=== PATIENT | female | born 1940 | race Caucasian/White ===

== ENCOUNTER 2019-12-04 16:40 | Inpatient (IN) | payer MEDICARE, OTHER, SELFPAY ==
[2019-12-04 16:41] VITALS: BP 143/78; PULSE 99; RESP 18; TEMP 36.8; O2SAT 97; BMI 34.7
--- NOTE | 2019-12-04 16:56 | CT_ITS ---
STUDY: CT ABDOMEN AND PELVIS WITH CONTRAST REASON FOR EXAM: Female, 79 years old patient has had five stools with bright red blood. Patient has elevated white cell count. RADIATION DOSAGE (If Supplied By Facility): CTDIvol = ( 19.78 ) mGy, DLP = ( 1165.43 ) mGycm TECHNIQUE: Transaxial images were obtained from the dome of the diaphragm to the symphysis pubis with oral contrast. 100 mL of Isovue-300 was administered. Sagittal and coronal images were reconstructed. Individualized dose optimization techniques were used for this CT. COMPARISON: None. FINDINGS: There is mild bilateral basilar dependent atelectasis. The visualized heart is mildly enlarged. There are coronary artery vascular calcifications. Normal liver. There is a large calcified gallstone. There is a benign calcified granuloma of the spleen. There is diffuse atrophy of the pancreas. Normal bilateral adrenal glands. Normal right kidney. Normal left kidney. Normal visualized stomach. There is no evidence for dilated bowel, ascites or pneumoperitoneum. Small bowel has a grossly normal appearance. There is a abnormal thickening of the escobar of the descending colon suggesting a diffuse probably acute infectious or inflammatory colitis. There is also abnormal thickening of the escobar of the sigmoid colon. There is also acute inflammation visualized within the fat adjacent to the abnormal colon. There are scattered colonic diverticula. There is gas-filled transverse colon. The ascending colon has a grossly normal appearance. There is non-visualization of the appendix. There is diffuse atherosclerotic calcification of the abdominal aorta with elongation and tortuosity, but without a demonstrated aneurysm. There is venous distention of the inferior vena cava (IVC). Normal retroperitoneum. Normal urinary bladder. There is absence of the uterus consistent with a prior hysterectomy. Normal abdominal wall. There are diffuse degenerative changes of the visualized spine. Bones appear osteopenic. There are degenerative changes of both hips. CT/Abdomen/Pelvis WITH Contrast IMPRESSION: 1. CT findings suggest sequela of acute infectious or inflammatory colitis involving the descending and sigmoid colon. 2. Cholelithiasis. Electronically Signed: Kat Jacobo MD at 19:53 EDT , Service support ,
--- NOTE | 2019-12-04 16:57 | ED.DCSUM_ITS ---
History of Present Illness Chief Complaint: GI Bleed Informant: Patient Onset: Yesterday Current Severity: Mild Maximum Severity: Mild Narrative: Patient present secondary to GI bleed. She reports having maroon blood rectally last evening and today. She has intermittent abdominal cramping. She also reports vomiting last night with blood. She does note that she did eat blueberry pancakes for dinner. She had not felt ill prior to getting sick last evening. Patient does have blood work with her from a prior hospitalization in 2010 for GI bleed. At that time it appears she was treated for a gastric ulcer and GI bleed with Prilosec. She does not remember if she had an EGD. She thinks she likely had a colonoscopy approximately 7 years ago. Past Medical History - Allergies and Home Meds Allergies/Adverse Reactions: Allergies No Known Allergies Allergy (Verified 12/04/19 16:44) Past Medical History: - - Prior GI bleed 9 years ago Surgical History: hysterectomy Lives: Spouse/ Significant Other Smoking Status: Never smoker Review of Systems General: Denies: Chills, Fever Eyes: Denies: Visual changes - bilaterally ENT: Denies: Bilateral ear pain Cardiovascular: Denies: Chest pain Respiratory: Denies: Dyspnea, Cough Gastrointestinal: Reports: Abdominal pain, Nausea, Vomiting, Melena Musculoskeletal: Denies: Swelling, Extremity Pain Skin: Denies: Rash, Wounds Neurological: Denies: Headache Hematologic: Denies: Easy bruising, Easy bleeding Allergy: Denies: Uticaria Physical Exam Vital Signs/Narrative: Vital Signs Temp Pulse Resp BP Pulse Ox 12/04/19 16:41 98.2 F 99 18 143/78 H 97 Inital Vital Signs reviewed: Yes General: Well nourished, Well developed Head: Normocephalic ENT: Moist mucous membranes Neck: Supple Cardiovascular: Regular rate, Regular rhythm Respiratory: No distress, CTA bilaterally Abdomen: Soft, Nontender, Normal bowel sounds Extremities: Nontender Skin: Normal color Neurological: Alert, Oriented x3 Psychological: Normal affect Diagnostic/Tx/Re-eval Impressions Abdomen/Pelvis CT 12/04/19 16:56 IMPRESSION: 1. CT findings suggest sequela of acute infectious or inflammatory colitis involving the descending and sigmoid colon. 2. Cholelithiasis. Electronically Signed: Kat Jacobo MD at 19:53 EDT , Service support , 12/04/19 16:56 Abdomen/Pelvis WITH Contrast [CT] Stat 12/04/19 17:41 Stool Stool Occult Blood (SABRINA) - Final Occult Blood Positive Laboratory Results 12/04/19 12/04/19 12/04/19 17:15 17:15 17:15 WBC 17.9 H RBC 4.72 Hgb 13.8 Hct 41.7 MCV 88.3 MCH 29.2 MCHC 33.1 RDW Std Deviation 38.8 RDW Coeff of Agus 12.1 Plt Count 329 MPV 10.8 Immature Gran % (Auto) 0.400 Neut % (Auto) 78.6 H Lymph % (Auto) 15.3 L [place] % (Auto) 5.3 Eos % (Auto) 0.2 Baso % (Auto) 0.2 Absolute Neuts (auto) 14.0 H Absolute Lymphs (auto) 2.74 Nucleated RBC % 0 PT 13.4 INR 1.1 APTT 24.2 Sodium 137 Potassium 3.5 Chloride 103 Carbon Dioxide 26.0 Anion Gap 8 BUN 14 Creatinine 0.79 Estim Creat Clear Calc 38.35 Est GFR (MDRD) Af Amer 91 Est GFR (MDRD) Non-Af 75 BUN/Creatinine Ratio 17.8 Glucose 282 H Hemoglobin A1c Calcium 9.1 12/04/19 17:15 WBC RBC Hgb Hct MCV MCH MCHC RDW Std Deviation RDW Coeff of Agus Plt Count MPV Immature Gran % (Auto) Neut % (Auto) Lymph % (Auto) [place] % (Auto) Eos % (Auto) Baso % (Auto) Absolute Neuts (auto) Absolute Lymphs (auto) Nucleated RBC % PT INR APTT Sodium Potassium Chloride Carbon Dioxide Anion Gap BUN Creatinine Estim Creat Clear Calc Est GFR (MDRD) Af Amer Est GFR (MDRD) Non-Af BUN/Creatinine Ratio Glucose Hemoglobin A1c 11.2 H Calcium - Medical Decision Making Patient was given IV fluids and Zofran. She was able to tolerate the p.o. contrast without difficulty. She has not needed anything for abdominal pain. Test results are discussed with patient and at bedside. I spoke with Dr. Ramirez, on-call for surgery. He asked that the patient be started on Cipro and Flagyl. She should be admitted for monitoring of her H&H and repeat exams. He will determine whether she will need to be scoped tomorrow or the following day. In light of the fact that the patient has new onset diabetes he would prefer medicine to admit and he will see her in consult. I will speak with the hospitalist. ED Disposition - Plan for ED Patient: Disposition: Acute Care Hospital [facility] Diagnosis: Colitis, GI bleed
[2019-12-04] MEDS: Ondansetron 4 MG/2 ML Vial IV (17:16)
[2019-12-04] MEDS: 0.9% Normal Saline 1,000 ML 150 ML IV (17:16)
[2019-12-04 17:27] LABS: Absolute Lymphocyte Count 2.74 X10^3/uL (0.83-4.51); Basophil# 0.03 X10^3/uL; Basophil% 0.2 % (0-1); Eosinophil# 0.03 X10^3/uL; Eosinophils% 0.2 % (0-5); Hematocrit 41.7 % (37-47); Hemoglobin 13.8 g/dL (12.0-15.0); Lymphocyte # 2.74 X10^3/ul (4.0); Lymphocyte % 15.3 % (19-41); Mean Corp Hgb Conc 33.1 g/dL (32-36); Mean Corpuscular Hgb 29.2 pg (27.0-32.0); Mean Corpuscular Volume 88.3 fL (81-99); Mean Platelet Vol. 10.8 fl (6.2-12.0); Monocyte# 0.95 X10^3/uL; Monocyte% 5.3 % (0-10); NRBC Flagged by Analyzer 0 % (0-5); Neutrophil # 14.04 X10^3/uL (2.7-7.7); Neutrophil % 78.6 % (47-70); Platelet Count 329 K/mm3 (150-450); RBC Distribution Width CV 12.1 % (11.6-14.6); RBC Distribution Width SD 38.8 fl (35.1-43.9); Red Blood Count 4.72 M/mm3 (4.2-5.4); White Blood Count 17.9 K/mm3 (4.4-11.0)
[2019-12-04 17:42] LABS: International Normalized Ratio 1.1; Prothrombin Time (Protime)PT. 13.4 SECONDS (11.7-14.9)
[2019-12-04 17:43] LABS: Partial Thromboplast Time 24.2 Seconds (24.1-36.2)
[2019-12-04 17:44] LABS: Anion Gap 8 (5-15); BUN 14 mg/dL (7-18); BUN/Creat Ratio 17.8 RATIO (10-20); Calcium,Total 9.1 mg/dL (8.5-10.1); Chloride 103 mmol/L (98-107); Creatinine, Serum 0.79 mg/dL (0.55-1.02); EST Glomerular Filtration Rate 75 mL/min (>60); Est Glom Filt Rate - Afr Amer 91 mL/min (>60); Estimated Creatinine Clearance 38.35 ml/min; Glucose 282 mg/dL (74-106); Potassium 3.5 mmol/L (3.5-5.1); Sodium Level 137 mmol/L (136-145)
[2019-12-04 18:37] LABS: Hemoglobin A1c 11.2 % (3.8-5.6)
--- NOTE | 2019-12-04 20:08 | HP.PCM_ITS ---
Problem List (1) Colitis Status: Acute (2) GI bleed Status: Acute (3) Diabetes Status: Acute History of Present Illness Date of Admission: 12/04/19 Chief Complaint: hematemesis and hematochezia The patient is a 79 year old F with a significant history of hypertension; and hyperlipidemia who presents to the emergency department with hematochezia and hematemesis. Her symptoms started a day before presentation after a blueberry pancakes dinner. Her symptoms first began with hematemesis which was followed by hematochezia. Initially her stool was mixed with blood. Later on her stool was entirely bloody. On the day of presentation she had hematochezia without hematemesis. Further, the patient has episodic left lower quadrants abdominal cramping. Emergent department doctor reports maroon stools on rectal examination. Reportedly in 2010 she had a colonoscopy. She denies a previous history of EGD. Reportedly she was on Prilosec some years back for gastric ulcer. CT scan of the abdomen is suggestive of acute infectious or inflammatory colitis in the descending and sigmoid colon as well as Cholelithiasis. Emergent department doctor discussed the case with general surgeon who will follow inpatient. Reportedly he has not seen a doctor for about 4 years. Past Medical History Medical History: Medical History (Last Reviewed 12/05/19 @ 02:[address] Julián Verdin MD) Hypertension I10 Allergies No Known Allergies Allergy (Verified 12/04/19 16:44) Home Medications: Ambulatory Orders Medication Instructions Recorded Cinnamon Bark [Cinnamon] 500 mg PO DAILY 12/04/19 Elderberry Fruit and Flower [Black 2 ea PO DAILY 12/04/19 Elderberry 575 mg Cap] Green Tea [place] Extract [Green Tea 315 mg PO BID 12/04/19 Extract] Turmeric/Turmeric Root Extract 500 mg PO DAILY 12/04/19 [Turmeric 500 mg Capsule] Ubidecarenone [Co Q10] 600 mg PO DAILY 12/04/19 Surgical History: hysterectomy Lives: Spouse/ Significant Other Smoking Status: Never smoker - *Family History Maternal History Items: Dementia, - - Parkinson disease Paternal History Items: - - Her father committed suicide Review of Systems Constitutional: Denies: Chills, Fever, Weight Change HEENT: Denies: Head Aches, Sinus Congestion, Sinus Drainage Cardiovascular: Denies: Chest Pain, Palpitations Respiratory: Denies: Cough, Shortness of breath at rest, Sputum production Gastrointestinal: Reports: Abdominal Pain, Hematemesis, Hematochezia, Nausea, Vomiting Genitourinary: Denies: Dysuria Musculoskeletal: Denies: Joint Pain, Joint Tenderness Skin: Denies: Rash, Wounds Neurological: Denies: Numbness, Tingling, Focal weakness Psychiatric: Denies: Anxiety, Depression, Homicidal Ideations, Suicidal Ideations Hematologic/ Lymphatic: Denies: Easy Bruising, Easy Bleeding VTE Information - Inpt Only VTE Present on Admission: No VTE Mechan Device Prophylaxis: SCD's VTE Pharm Prophylaxis ordered?: No Patient Problems: Active and Suspected Problems (Last Updated 12/04/19 @ 20:[address] Julián Verdin MD) Colitis (Acute) GI bleed (Acute) Diabetes (Acute) - Physical Exam Vitals/I&O's: Vital Signs Temp Pulse Resp BP Pulse Ox 98.2 F 99 18 143/78 H 97 12/04/19 16:41 12/04/19 16:41 12/04/19 16:41 12/04/19 16:41 12/04/19 16:41 Oxygen Delivery Method Room Air Weight: 89.1 kg Body Mass Index (BMI) 34.7 Intake and Output for Last 24 Hours 12/02/19 12/03/19 12/04/19 23:59 23:59 23:59 Intake Total 110 / 110 Balance 110 / 110 General: Alert, Oriented x3, Cooperative HEENT: Atraumatic, PERRLA, EOMI, Normocephalic Neck: Supple, No JVD, Negative Carotid Bruits Lungs: Clear to auscultation, Normal air movement, No rhonchi, No wheeze Cardiovascular: Regular rate, Regular Rhythm, Normal S1, Normal S2, No murmurs Abdomen: Bowel Sounds Present, Soft, Non Tender Extremities: No edema, Capillary Refill Less than 3 Seconds Skin: No rashes, No breakdown Musculoskeletal: No Tenderness to Palpation of Joints or Extremities Neurological: Cranial nerves II-XII grossly intact Psych/Mental Status: Normal Affect, Appropriate Microbiology Past 72 Hours 12/04/19 17:41 Stool Stool Occult Blood (SABRINA) - Final Occult Blood Positive Laboratory Results 12/04/19 17:15: WBC 17.9 H, RBC 4.72, Hgb 13.8, Hct 41.7, MCV 88.3, MCH 29.2, MCHC 33.1, RDW Std Deviation 38.8, RDW Coeff of Agus 12.1, Plt Count 329, MPV 10.8, Immature Gran % (Auto) 0.400, Neut % (Auto) 78.6 H, Lymph % (Auto) 15.3 L, [place] % (Auto) 5.3, Eos % (Auto) 0.2, Baso % (Auto) 0.2, Absolute Neuts (auto) 14.0 H, Absolute Lymphs (auto) 2.74, Nucleated RBC % 0 12/04/19 17:15: PT 13.4, INR 1.1, APTT 24.2 12/04/19 17:15: Sodium 137, Potassium 3.5, Chloride 103, Carbon Dioxide 26.0, Anion Gap 8, BUN 14, Creatinine 0.79, Estim Creat Clear Calc 38.35, Est GFR (MDRD) Af Amer 91, Est GFR (MDRD) Non-Af 75, BUN/Creatinine Ratio 17.8, Glucose 282 H, Calcium 9.1 12/04/19 17:15: Hemoglobin A1c 11.2 H Current Medications Sodium Chloride () 1,000 mls @ 150 mls/hr IV .[id number] FABI Last Admin: 12/04/19 17:16 Dose: 150 mls/hr Documented by: Ciprofloxacin (Cipro) 400 mg in 200 mls @ 200 mls/hr IV X1 ONE Stop: 12/04/19 21:00 Metronidazole (Flagyl) 500 mg in 100 mls @ 100 mls/hr IV X1 ONE Stop: 12/04/19 21:00 Assessment/Plan All Active Problems (Last Updated 12/04/19 @ 20:[address] Julián Verdin MD) Colitis (Acute) GI bleed (Acute) Diabetes (Acute) The patient is a 79 year old F with a significant history of hypertension; and hyperlipidemia who presents emergency department with hematochezia and hematemesis; and with a CT findings suggestive of acute infectious or inflammatory colitis.. Acute GI bleed Discussed the case with general surgeon. Patient will be kept n.p.o. and H&H trended. No chemical thromboprophylaxis at this time. Was started on NSS IV fluids at emergency department at a rate of 150 mL's per hour. continued at maintenance rate of 100 MS per hour. Received Protonix IV at emergency department. Will put on Protonix drip. General surgery consult. Acute colitis Patient with leukocytosis with white count of 17.9. Developed low-grade fever Metronidazole IV and ciprofloxacin IV ordered at emergency department and continued Trend CBC. Diabetes mellitus with hyperglycemia Glucose on BMP was 282 and a follow-up A1c obtained at the emergency department was 11.2. Patient denies previous history of diabetes. While n.p.o. will check Accu-Chek every 6 hours and put on low correction scale insulin. Nutrition consult for diabetic education. Hypertension Stable blood pressure in regards to her age. Trend blood pressures. Cholelithiasis Asymptomatic No treatment at this time. DVT prophylaxis SCD ordered Inpatient E&M: 63888 Init Hosp L3
[2019-12-04] MEDS: metroNIDAZOLE 500 MG/100 ML BAG 100 MG IV (20:13)
[2019-12-04 20:15] VITALS: BP 140/68; PULSE 83; RESP 16; TEMP 36.9; O2SAT 96
[2019-12-04 20:58] VITALS: BP 121/65; PULSE 82; RESP 18; TEMP 37.4; O2SAT 95
[2019-12-04 21:03] VITALS: BMI 34.7
[2019-12-04 21:04] VITALS: BMI 34.7
[2019-12-04] MEDS: 0.9% Normal Saline 1,000 ML 100 ML IV (21:52)
[2019-12-04] MEDS: Ciprofloxacin 400 MG/200 ML BAG 200 MG IV (21:52)
[2019-12-04] MEDS: 0.9% Saline Lock 10 ML Syringe IV (22:02)
[2019-12-04 22:58] LABS: Hematocrit 39.4 % (37-47); Hemoglobin 12.7 g/dL (12.0-15.0)
[2019-12-05 00:01] LABS: Bedside Glucose 291 mg/dL (70-110)
[2019-12-05] MEDS: Insulin Lispro 100 UNIT/ML INSULN.PEN SC ×3 (00:03→23:59)
[2019-12-05 03:04] VITALS: BP 126/61; PULSE 80; RESP 16; TEMP 37.1; O2SAT 94
[2019-12-05] MEDS: metroNIDAZOLE 500 MG/100 ML BAG 100 MG IV ×3 (06:36→21:05)
[2019-12-05 06:45] LABS: Bedside Glucose 267 mg/dL (70-110)
[2019-12-05 07:20] LABS: Absolute Lymphocyte Count 0.66 X10^3/uL (0.83-4.51); Absolute Neutrophil Count 12.2 X10^3/uL (2.0-7.7); Basophil# 0.02 X10^3/uL; Basophil% 0.2 % (0-1); Eosinophil# 0.05 X10^3/uL; Eosinophils% 0.4 % (0-5); Hematocrit 39.5 % (37-47); Hemoglobin 12.7 g/dL (12.0-15.0); Lymphocyte # 0.66 X10^3/ul (4.0); Mean Corp Hgb Conc 32.2 g/dL (32-36); Mean Corpuscular Volume 90.2 fL (81-99); Monocyte# 0.22 X10^3/uL; Monocyte% 1.7 % (0-10); NRBC Flagged by Analyzer 0 % (0-5); Neutrophil # 12.18 X10^3/uL (2.7-7.7); Neutrophil % 92.3 % (47-70); Platelet Count 239 K/mm3 (150-450); RBC Distribution Width CV 12.1 % (11.6-14.6); RBC Distribution Width SD 40.3 fl (35.1-43.9); Red Blood Count 4.38 M/mm3 (4.2-5.4); White Blood Count 13.2 K/mm3 (4.4-11.0)
[2019-12-05 07:47] LABS: ALB/GLOB Ratio 0.8 RATIO (0.9-2.4); AST(SGOT) 15 U/L (15-37); Alanine Aminotransfer ALT/SGPT 14 U/L (13-56); Albumin, Serum 2.7 g/dL (3.2-5.0); Alkaline Phosphatase 77 U/L (45-117); Anion Gap 6 (5-15); BUN 8 mg/dL (7-18); BUN/Creat Ratio 11.5 RATIO (10-20); Calcium,Total 8.1 mg/dL (8.5-10.1); Chloride 107 mmol/L (98-107); EST Glomerular Filtration Rate 86 mL/min (>60); Est Glom Filt Rate - Afr Amer 105 mL/min (>60); Estimated Creatinine Clearance 38.35 ml/min; Globulin 3.6 g/dL (2.2-4.2); Glucose 252 mg/dL (74-106); Potassium 3.6 mmol/L (3.5-5.1); Protein, Total 6.3 g/dL (6.4-8.2); Sodium Level 138 mmol/L (136-145)
--- NOTE | 2019-12-05 07:50 | PN_ITS ---
Patient Problems: Active and Suspected Problems (Last Reviewed 12/05/19 @ 02:[address] Julián Verdin MD) Colitis (Acute) GI bleed (Acute) Diabetes (Acute) Reason for Visit: Follow-up on acute GI bleed/acute colitis Subjective: Patient was seen and examined. She denied any dizziness or palpitations or chest pain. She has had a bowel movement today that was bloody. No hematemesis. Her vitals have remained stable. Hemoglobin is also stable. Stool for occult blood is positive. Objective: Physical exam: General: Alert, Oriented x3, Cooperative HEENT: Atraumatic, PERRLA, EOMI, Normocephalic Neck: Supple, No JVD, Negative Carotid Bruits Lungs: Clear to auscultation, Normal air movement, No rhonchi, No wheeze Cardiovascular: Regular rate, Regular Rhythm, Normal S1, Normal S2, No murmurs Abdomen: Bowel Sounds Present, Soft, tenderness over left lower quadrant, no guarding or RBT Extremities: No edema, Capillary Refill Less than 3 Seconds Skin: No rashes, No breakdown Musculoskeletal: No Tenderness to Palpation of Joints or Extremities Neurological: Cranial nerves II-XII grossly intact Psych/Mental Status: Normal Affect, Appropriate Vitals/I&O's: Vital Signs Temp Pulse Resp BP Pulse Ox 98.7 F 80 16 126/61 H 94 12/05/19 03:04 12/05/19 03:04 12/05/19 03:04 12/05/19 03:04 12/05/19 03:04 Oxygen Delivery Method Room Air Weight: 88.9 kg Body Mass Index (BMI) 34.7 Intake and Output for Last 24 Hours 12/03/19 12/04/19 12/05/19 23:59 23:59 23:59 Intake Total 1100 / 1100 873.33 / 873.33 Output Total 700 / 700 Balance 1100 / 1100 173.33 / 173.33 Microbiology Past 72 Hours 12/04/19 17:41 Stool Stool Occult Blood (SABRINA) - Final Occult Blood Positive Laboratory Results 12/04/19 17:15: WBC 17.9 H, RBC 4.72, Hgb 13.8, Hct 41.7, MCV 88.3, MCH 29.2, MCHC 33.1, RDW Std Deviation 38.8, RDW Coeff of Agus 12.1, Plt Count 329, MPV 10.8, Immature Gran % (Auto) 0.400, Neut % (Auto) 78.6 H, Lymph % (Auto) 15.3 L, [place] % (Auto) 5.3, Eos % (Auto) 0.2, Baso % (Auto) 0.2, Absolute Neuts (auto) 14.0 H, Absolute Lymphs (auto) 2.74, Nucleated RBC % 0 12/04/19 17:15: PT 13.4, INR 1.1, APTT 24.2 12/04/19 17:15: Sodium 137, Potassium 3.5, Chloride 103, Carbon Dioxide 26.0, Anion Gap 8, BUN 14, Creatinine 0.79, Estim Creat Clear Calc 38.35, Est GFR (MDRD) Af Amer 91, Est GFR (MDRD) Non-Af 75, BUN/Creatinine Ratio 17.8, Glucose 282 H, Calcium 9.1 12/04/19 17:15: Hemoglobin A1c 11.2 H 12/04/19 22:49: Hgb 12.7, Hct 39.4 12/04/19 23:58: POC Glucose 291 H 12/05/19 06:34: POC Glucose 267 H 12/05/19 06:57: WBC 13.2 H, RBC 4.38, Hgb 12.7, Hct 39.5, MCV 90.2, MCH 29.0, MCHC 32.2, RDW Std Deviation 40.3, RDW Coeff of Agus 12.1, Plt Count 239, MPV 11.0, Immature Gran % (Auto) 0.400, Neut % (Auto) 92.3 H, Lymph % (Auto) 5.0 L, [place] % (Auto) 1.7, Eos % (Auto) 0.4, Baso % (Auto) 0.2, Absolute Neuts (auto) 12.2 H, Absolute Lymphs (auto) 0.66 L, Nucleated RBC % 0 12/05/19 07:05: Sodium 138, Potassium 3.6, Chloride 107, Carbon Dioxide 25.0, Anion Gap 6, BUN 8, Creatinine 0.70, Estim Creat Clear Calc 38.35, Est GFR (MDRD) Af Amer 105, Est GFR (MDRD) Non-Af 86, BUN/Creatinine Ratio 11.5, Glucose 252 H, Calcium 8.1 L, Total Bilirubin 1.30 H, AST 15, ALT 14, Alkaline Phosphatase 77, Total Protein 6.3 L, Albumin 2.7 L, Globulin 3.6, Albumin/Globulin Ratio 0.8 L Current Medications Dextrose (D50w Syringe) 0 gm IV X1 PRN; Protocol PRN Reason: Hypoglycemia Glucagon () 1 mg IM .X1 PRN PRN Reason: Hypoglycemia Sodium Chloride () 1,000 mls @ 100 mls/hr IV .Q10H FABI Last Infusion: 12/05/19 06:36 Dose: 0 mls/hr Documented by: Metronidazole (Flagyl) 500 mg in 100 mls @ 100 mls/hr IV Q8 FABI Last Infusion: 12/05/19 07:36 Dose: Infused Documented by: Ciprofloxacin (Cipro) 400 mg in 200 mls @ 200 mls/hr IV Q12 FABI Last Infusion: 12/04/19 22:52 Dose: Infused Documented by: Pantoprazole Sodium 80 mg/ (Sodium Chloride) 100 mls @ 10 mls/hr CONT INF Q10H [facility] Last Admin: 12/04/19 21:52 Dose: 10 mls/hr Documented by: Sodium Chloride () 250 mls @ 15 mls/hr IV .[id number] PRN PRN Reason: Saline Flush Sodium Chloride () 250 mls @ 15 mls/hr IV .[id number] PRN PRN Reason: Additional IVPB Infusion Insulin Human Lispro (Humalog Kwikpen (Bkc)) 0 unit SC Q6 FABI; Protocol Last Admin: 12/05/19 06:36 Dose: 2 u Documented by: Ondansetron HCl (Zofran) 4 mg IV Q8H PRN PRN PRN Reason: NAUSEA/VOMITING Sodium Chloride () 10 - 40 ml IV UD PRN PRN Reason: SALINE FLUSH Last Admin: 12/04/19 22:02 Dose: 10 ml Documented by: Medical Necessity - Tobacco Use Smoking Status: Never smoker Assessment/Plan All Active Problems (Last Reviewed 12/05/19 @ 02:[address] Julián Verdin MD) Colitis (Acute) GI bleed (Acute) Diabetes (Acute) 1. Acute GI bleed likely secondary to acute colitis, remains the same CT scan of the abdomen shows colitis of the descending and sigmoid colon No drop in hemoglobin. Stable vitals General surgery consulted, being managed conservatively We will continue with H&H, IV PPI, IV antibiotics 2. Acute colitis, as above in #1 Continue on IV antibiotics Stool for C. difficile, enteric panel, ova and parasites pending 3. Hypertension, not on any medication, will continue to monitor 4. DVT prophylaxis - SCDs Inpatient E&M: 45616 Subs Hosp L2
--- NOTE | 2019-12-05 08:04 | CON.PCM_ITS ---
Problem List (1) Colitis Status: Acute (2) GI bleed Status: Acute Qualifiers: GI bleed type/associated pathology: unspecified gastrointestinal hemorrhage type Qualified Code(s): K92.2 - Gastrointestinal hemorrhage, unspecified Reason for Consult Date of Consultation: 12/05/19 Reason for Consultation: GI bleed and colitis History of Present Illness: The patient is a 79 year old F who presents with left lower quadrant pain as well as nausea vomiting and bloody diarrhea. The patient reports that Friday evening she began to have bloody vomiting with bright red blood and bloody diarrhea. She is complaining of left lower quadrant pain. She says that this happened before in 2010 and she had a bleeding ulcer. This morning she says that she had a bowel movement with some dark red clots but no nausea or vomiting. No bright red blood in the stool. Patient reports she had EGD and colonoscopy in 2010 during this last episode. She is not on a PPI at home. Past Medical History Medical History: Medical History (Last Reviewed 12/05/19 @ 02:[address] Jluián Verdin MD) Hypertension I10 Allergies No Known Allergies Allergy (Verified 12/04/19 16:44) Home Medications: Ambulatory Orders Medication Instructions Recorded Cinnamon Bark [Cinnamon] 500 mg PO DAILY 12/04/19 Elderberry Fruit and Flower [Black 2 ea PO DAILY 12/04/19 Elderberry 575 mg Cap] Green Tea [place] Extract [Green Tea 315 mg PO BID 12/04/19 Extract] Turmeric/Turmeric Root Extract 500 mg PO DAILY 12/04/19 [Turmeric 500 mg Capsule] Ubidecarenone [Co Q10] 600 mg PO DAILY 12/04/19 Surgical History: hysterectomy Lives: Spouse/ Significant Other Smoking Status: Never smoker - *Family History Maternal History Items: Dementia, - - Parkinson disease Paternal History Items: - - Her father committed suicide Review of Systems Constitutional: Denies: Anorexia, Fever HEENT: Denies: Difficulty Swallowing Cardiovascular: Denies: Chest Pain Respiratory: Denies: Cough, Shortness of Breath Gastrointestinal: Reports: Abdominal Pain, Hematemesis, Hematochezia, Nausea, Vomiting Genitourinary: Denies: Dysuria Skin: Denies: Jaundice Neurological: Denies: Balance problems Hematologic/ Lymphatic: Denies: Anemia Patient Problems: Active and Suspected Problems (Last Reviewed 12/05/19 @ 02:[address] Julián Verdin MD) Colitis (Acute) GI bleed (Acute) Diabetes (Acute) - Physical Exam Vitals/I&O's: Vital Signs Temp Pulse Resp BP Pulse Ox 98.7 F 80 16 126/61 H 94 12/05/19 03:04 12/05/19 03:04 12/05/19 03:04 12/05/19 03:04 12/05/19 03:04 Oxygen Delivery Method Room Air Weight: 195 lb 15.855 oz Body Mass Index (BMI) 34.7 Intake and Output for Last 24 Hours 12/03/19 12/04/19 12/05/19 23:59 23:59 23:59 Intake Total 1100 / 1100 873.33 / 873.33 Output Total 700 / 700 Balance 1100 / 1100 173.33 / 173.33 General: Alert, Oriented x3 Lungs: Normal air movement Cardiovascular: Regular rate, Regular Rhythm Abdomen: Soft, Non-Distended, Tender - Tender in the left lower quadrant with no guarding or rebound Extremities: No clubbing Musculoskeletal: No Tenderness to Palpation of Joints or Extremities Neurological: Cranial nerves II-XII grossly intact Psych/Mental Status: Normal Affect Microbiology Past 72 Hours 12/04/19 17:41 Stool Stool Occult Blood (SABRINA) - Final Occult Blood Positive Laboratory Results 12/04/19 17:15: WBC 17.9 H, RBC 4.72, Hgb 13.8, Hct 41.7, MCV 88.3, MCH 29.2, MCHC 33.1, RDW Std Deviation 38.8, RDW Coeff of Agus 12.1, Plt Count 329, MPV 10.8, Immature Gran % (Auto) 0.400, Neut % (Auto) 78.6 H, Lymph % (Auto) 15.3 L, [place] % (Auto) 5.3, Eos % (Auto) 0.2, Baso % (Auto) 0.2, Absolute Neuts (auto) 14.0 H, Absolute Lymphs (auto) 2.74, Nucleated RBC % 0 12/04/19 17:15: PT 13.4, INR 1.1, APTT 24.2 12/04/19 17:15: Sodium 137, Potassium 3.5, Chloride 103, Carbon Dioxide 26.0, Anion Gap 8, BUN 14, Creatinine 0.79, Estim Creat Clear Calc 38.35, Est GFR (MDRD) Af Amer 91, Est GFR (MDRD) Non-Af 75, BUN/Creatinine Ratio 17.8, Glucose 282 H, Calcium 9.1 12/04/19 17:15: Hemoglobin A1c 11.2 H 12/04/19 22:49: Hgb 12.7, Hct 39.4 12/04/19 23:58: POC Glucose 291 H 12/05/19 06:34: POC Glucose 267 H 12/05/19 06:57: WBC 13.2 H, RBC 4.38, Hgb 12.7, Hct 39.5, MCV 90.2, MCH 29.0, MCHC 32.2, RDW Std Deviation 40.3, RDW Coeff of Agus 12.1, Plt Count 239, MPV 11.0, Immature Gran % (Auto) 0.400, Neut % (Auto) 92.3 H, Lymph % (Auto) 5.0 L, Nelson % (Auto) 1.7, Eos % (Auto) 0.4, Baso % (Auto) 0.2, Absolute Neuts (auto) 12.2 H, Absolute Lymphs (auto) 0.66 L, Nucleated RBC % 0 12/05/19 07:05: Sodium 138, Potassium 3.6, Chloride 107, Carbon Dioxide 25.0, Anion Gap 6, BUN 8, Creatinine 0.70, Estim Creat Clear Calc 38.35, Est GFR (MDRD) Af Amer 105, Est GFR (MDRD) Non-Af 86, BUN/Creatinine Ratio 11.5, Glucose 252 H, Calcium 8.1 L, Total Bilirubin 1.30 H, AST 15, ALT 14, Alkaline Phosphatase 77, Total Protein 6.3 L, Albumin 2.7 L, Globulin 3.6, Albumin/Globulin Ratio 0.8 L Clinical Impression(s) from Imaging Studies Abdomen/Pelvis CT 12/04/19 16:56 IMPRESSION: 1. CT findings suggest sequela of acute infectious or inflammatory colitis involving the descending and sigmoid colon. 2. Cholelithiasis. Electronically Signed: Kat Jacobo MD at 19:53 EDT , Service support , Current Medications Dextrose (D50w Syringe) 0 gm IV X1 PRN; Protocol PRN Reason: Hypoglycemia Glucagon () 1 mg IM .X1 PRN PRN Reason: Hypoglycemia Sodium Chloride () 1,000 mls @ 100 mls/hr IV .Q10H [facility]I Last Infusion: 12/05/19 06:36 Dose: 0 mls/hr Documented by: Metronidazole (Flagyl) 500 mg in 100 mls @ 100 mls/hr IV Q8 [facility]I Last Infusion: 12/05/19 07:36 Dose: Infused Documented by: Ciprofloxacin (Cipro) 400 mg in 200 mls @ 200 mls/hr IV Q12 [facility]I Last Infusion: 12/04/19 22:52 Dose: Infused Documented by: Pantoprazole Sodium 80 mg/ (Sodium Chloride) 100 mls @ 10 mls/hr CONT INF Q10H [facility] Last Admin: 12/04/19 21:52 Dose: 10 mls/hr Documented by: Sodium Chloride () 250 mls @ 15 mls/hr IV .[id number] PRN PRN Reason: Saline Flush Sodium Chloride () 250 mls @ 15 mls/hr IV .[id number] PRN PRN Reason: Additional IVPB Infusion Insulin Human Lispro (Humalog Kwikpen (Bkc)) 0 unit SC Q6 FABI; Protocol Last Admin: 12/05/19 06:36 Dose: 2 u Documented by: Ondansetron HCl (Zofran) 4 mg IV Q8H PRN PRN PRN Reason: NAUSEA/VOMITING Sodium Chloride () 10 - 40 ml IV UD PRN PRN Reason: SALINE FLUSH Last Admin: 12/04/19 22:02 Dose: 10 ml Documented by: Assessment/Plan All Active Problems (Last Reviewed 12/05/19 @ 02:[address] Julián Verdin MD) Colitis (Acute) GI bleed (Acute) Diabetes (Acute) 79-year-old female with colitis and GI bleed 1. Patient has colitis of the descending and sigmoid colon of unknown etiology. Patient does not report that she ate any unusual foods. The patient has never had colitis in the past. Her last colonoscopy was in 2010 after a bleed. Patient is currently not having any nausea or vomiting and according to the nurse the patient had a small amount of dark clots passed this morning. 2. At this time hemoglobin is stable and I am unsure if this is upper GI bleed or if the bleeding is coming from the colitis. If she is vomiting up blood she may have 2 concurrent problems with a bleeding ulcer and her colitis. I would recommend continuing a PPI and n.p.o. status. Patient is not having any nausea or vomiting at this time or epigastric pain. The patient CT scan shows thickening of the colon from the splenic flexure down to the rectosigmoid junction. Continue n.p.o. and IV antibiotics. Patient's hemoglobin is stable so I will continue to monitor at this time. If she starts throwing up blood or hemoglobin drifts downward I will plan for an EGD. I would like to hold off on doing a colonoscopy due to the colitis until this has resolved. If there is any worsening or she develops any peritoneal symptoms or fever I would consider exploratory laparoscopy or emergent colonoscopy to look at the mucosa of the colon. 3. Patient is newly diagnosed diabetic as well. Rajat Ramirez MD Pager: [facility] [address] [place] [address], [address] [place] [address] Office:
[2019-12-05 09:54] LABS: Hemoglobin 12.6 g/dL (12.0-15.0)
[2019-12-05 10:00] VITALS: BP 116/54; PULSE 73; RESP 16; TEMP 36.9; O2SAT 94
[2019-12-05] MEDS: Ciprofloxacin 400 MG/200 ML BAG 200 MG IV ×2 (10:11→22:25)
[2019-12-05] MEDS: 0.9% Normal Saline 1,000 ML 100 ML IV ×2 (10:16→20:43)
[2019-12-05 12:05] LABS: Bedside Glucose 212 mg/dL (70-110)
[2019-12-05] MEDS: 0.9% Saline Lock 10 ML Syringe IV (13:05)
[2019-12-05 16:00] VITALS: BP 126/57; PULSE 72; RESP 16; TEMP 36.9; O2SAT 94
[2019-12-05 16:19] LABS: Hematocrit 39.5 % (37-47); Hemoglobin 12.4 g/dL (12.0-15.0)
[2019-12-05 18:15] LABS: Bedside Glucose 151 mg/dL (70-110)
[2019-12-05 20:34] VITALS: BP 131/70; PULSE 68; RESP 18; TEMP 37.1; O2SAT 95
[2019-12-06 00:06] LABS: Bedside Glucose 183 mg/dL (70-110)
[2019-12-06 03:08] VITALS: BP 128/74; PULSE 64; RESP 16; TEMP 36.8; O2SAT 95
[2019-12-06] MEDS: metroNIDAZOLE 500 MG/100 ML BAG 100 MG IV ×3 (05:13→22:15)
[2019-12-06 06:07] LABS: Absolute Neutrophil Count 9.2 X10^3/uL (2.0-7.7); Basophil# 0.03 X10^3/uL; Basophil% 0.2 % (0-1); Eosinophil# 0.23 X10^3/uL; Eosinophils% 1.8 % (0-5); Hematocrit 38.4 % (37-47); Lymphocyte % 19.9 % (19-41); Mean Corp Hgb Conc 31.3 g/dL (32-36); Mean Corpuscular Hgb 28.9 pg (27.0-32.0); Mean Corpuscular Volume 92.5 fL (81-99); Mean Platelet Vol. 11.2 fl (6.2-12.0); Monocyte# 0.57 X10^3/uL; Monocyte% 4.5 % (0-10); NRBC Flagged by Analyzer 0 % (0-5); Neutrophil # 9.17 X10^3/uL (2.7-7.7); Neutrophil % 73.2 % (47-70); Platelet Count 236 K/mm3 (150-450); RBC Distribution Width CV 12.5 % (11.6-14.6); RBC Distribution Width SD 42.2 fl (35.1-43.9); Red Blood Count 4.15 M/mm3 (4.2-5.4); White Blood Count 12.6 K/mm3 (4.4-11.0)
[2019-12-06] MEDS: Insulin Lispro 100 UNIT/ML INSULN.PEN SC ×3 (06:20→18:12)
[2019-12-06 06:25] LABS: Bedside Glucose 163 mg/dL (70-110)
[2019-12-06 06:47] LABS: ALB/GLOB Ratio 0.7 RATIO (0.9-2.4); AST(SGOT) 10 U/L (15-37); Alanine Aminotransfer ALT/SGPT 12 U/L (13-56); Albumin, Serum 2.4 g/dL (3.2-5.0); Alkaline Phosphatase 68 U/L (45-117); Anion Gap 4 (5-15); BUN 8 mg/dL (7-18); BUN/Creat Ratio 13.5 RATIO (10-20); Calcium,Total 7.9 mg/dL (8.5-10.1); Chloride 108 mmol/L (98-107); Creatinine, Serum 0.59 mg/dL (0.55-1.02); EST Glomerular Filtration Rate 104 mL/min (>60); Est Glom Filt Rate - Afr Amer 126 mL/min (>60); Estimated Creatinine Clearance 38.35 ml/min; Globulin 3.5 g/dL (2.2-4.2); Glucose 148 mg/dL (74-106); Potassium 3.3 mmol/L (3.5-5.1); Protein, Total 5.9 g/dL (6.4-8.2); Sodium Level 139 mmol/L (136-145)
[2019-12-06 07:25] VITALS: O2SAT 93
--- NOTE | 2019-12-06 07:41 | PCM.PN.HOSP ---
Patient Problems: Active and Suspected Problems (Last Reviewed 12/05/19 @ 02:[address] Julián Verdin MD) Colitis (Acute) GI bleed (Acute) Diabetes (Acute) Reason for Visit: Follow-up on acute GI bleed/acute colitis Subjective: Patient was seen and examined. Denied any new complaints. She had one episode of bloody stools today. Has very mild left lower quadrant pain. Denies dizziness or palpitations or chest pain. Objective: Physical exam: General: Alert, Oriented x3, Cooperative HEENT: Atraumatic, PERRLA, EOMI, Normocephalic Neck: Supple, No JVD, Negative Carotid Bruits Lungs: Clear to auscultation, Normal air movement, No rhonchi, No wheeze Cardiovascular: Regular rate, Regular Rhythm, Normal S1, Normal S2, No murmurs Abdomen: Bowel Sounds Present, Soft, tenderness over left lower quadrant, no guarding or RBT Extremities: No edema, Capillary Refill Less than 3 Seconds Skin: No rashes, No breakdown Musculoskeletal: No Tenderness to Palpation of Joints or Extremities Neurological: Cranial nerves II-XII grossly intact Psych/Mental Status: Normal Affect, Appropriate Vitals/I&O's: Vital Signs Temp Pulse Resp BP Pulse Ox 98.2 F 64 16 128/74 H 95 12/06/19 03:08 12/06/19 03:08 12/06/19 03:08 12/06/19 03:08 12/06/19 03:08 Oxygen Delivery Method Room Air Weight: 88.9 kg Body Mass Index (BMI) 34.7 Intake and Output for Last 24 Hours 12/04/19 12/05/19 12/06/19 23:59 23:59 23:59 Intake Total 1100 / 1100 2815.58 / 2815.58 678.33 / 678.33 Output Total 950 / 950 250 / 250 Balance 1100 / 1100 1865.58 / 1865.58 428.33 / 428.33 Microbiology Past 72 Hours 12/05/19 10:10 Stool Enteric Bacteriology - Final 12/05/19 10:10 Stool C. difficile DNA Amplification - Final 12/04/19 17:41 Stool Stool Occult Blood (SABRINA) - Final Occult Blood Positive Laboratory Results 12/05/19 07:05: Sodium 138, Potassium 3.6, Chloride 107, Carbon Dioxide 25.0, Anion Gap 6, BUN 8, Creatinine 0.70, Estim Creat Clear Calc 38.35, Est GFR (MDRD) Af Amer 105, Est GFR (MDRD) Non-Af 86, BUN/Creatinine Ratio 11.5, Glucose 252 H, Calcium 8.1 L, Total Bilirubin 1.30 H, AST 15, ALT 14, Alkaline Phosphatase 77, Total Protein 6.3 L, Albumin 2.7 L, Globulin 3.6, Albumin/Globulin Ratio 0.8 L 12/05/19 09:44: Hgb 12.6, Hct 40.0 12/05/19 11:59: POC Glucose 212 H 12/05/19 16:03: Hgb 12.4, Hct 39.5 12/05/19 18:03: POC Glucose 151 H 12/05/19 23:57: POC Glucose 183 H 12/06/19 05:08: WBC 12.6 H, RBC 4.15 L, Hgb 12.0, Hct 38.4, MCV 92.5, MCH 28.9, MCHC 31.3 L, RDW Std Deviation 42.2, RDW Coeff of Agus 12.5, Plt Count 236, MPV 11.2, Immature Gran % (Auto) 0.400, Neut % (Auto) 73.2 H, Lymph % (Auto) 19.9, [place] % (Auto) 4.5, Eos % (Auto) 1.8, Baso % (Auto) 0.2, Absolute Neuts (auto) 9.2 H, Absolute Lymphs (auto) 2.50, Nucleated RBC % 0 12/06/19 05:08: Sodium 139, Potassium 3.3 L, Chloride 108 H, Carbon Dioxide 27.0, Anion Gap 4 L, BUN 8, Creatinine 0.59, Estim Creat Clear Calc 38.35, Est GFR (MDRD) Af Amer 126, Est GFR (MDRD) Non-Af 104, BUN/Creatinine Ratio 13.5, Glucose 148 H, Calcium 7.9 L, Total Bilirubin 0.70, AST 10 L, ALT 12 L, Alkaline Phosphatase 68, Total Protein 5.9 L, Albumin 2.4 L, Globulin 3.5, Albumin/Globulin Ratio 0.7 L 12/06/19 06:19: POC Glucose 163 H Current Medications Dextrose (D50w Syringe) 0 gm IV X1 PRN; Protocol PRN Reason: Hypoglycemia Glucagon () 1 mg IM .X1 PRN PRN Reason: Hypoglycemia Sodium Chloride () 1,000 mls @ 100 mls/hr IV .Q10H FABI Last Admin: 12/06/19 06:16 Dose: Not Given Documented by: Metronidazole (Flagyl) 500 mg in 100 mls @ 100 mls/hr IV Q8 FABI Last Infusion: 12/06/19 06:13 Dose: Infused Documented by: Ciprofloxacin (Cipro) 400 mg in 200 mls @ 200 mls/hr IV Q12 FABI Last Infusion: 12/05/19 23:25 Dose: Infused Documented by: Sodium Chloride () 250 mls @ 15 mls/hr IV .[id number] PRN PRN Reason: Saline Flush Last Infusion: 12/05/19 13:07 Dose: 0 mls/hr Documented by: Sodium Chloride () 250 mls @ 15 mls/hr IV .[id number] PRN PRN Reason: Additional IVPB Infusion Pantoprazole Sodium 80 mg/ (Sodium Chloride) 100 mls @ 10 mls/hr CONT INF Q10H [facility] Last Admin: 12/05/19 22:26 Dose: 10 mls/hr Documented by: Insulin Human Lispro (Humalog Kwikpen (Bkc)) 0 unit SC Q6 FABI; Protocol Last Admin: 12/06/19 06:20 Dose: 1 u Documented by: Ondansetron HCl (Zofran) 4 mg IV Q8H PRN PRN PRN Reason: NAUSEA/VOMITING Sodium Chloride () 10 - 40 ml IV UD PRN PRN Reason: SALINE FLUSH Last Admin: 12/05/19 13:05 Dose: 10 ml Documented by: Medical Necessity - Tobacco Use Smoking Status: Never smoker Assessment/Plan All Active Problems (Last Reviewed 12/05/19 @ 02:[address] Julián Verdin MD) Colitis (Acute) GI bleed (Acute) Diabetes (Acute) 1. Acute GI bleed likely secondary to acute colitis, remains the same CT scan of the abdomen shows colitis of the descending and sigmoid colon No drop in hemoglobin. Stable vitals General surgery consulted, being managed conservatively We will continue with H&H, IV PPI, IV antibiotics 2. Acute colitis, as above in #1 Continue on IV antibiotics Stool for C. difficile, enteric panel negative, stool for ova and parasites pending 3. Hypokalemia, K 3.3, replaced, recheck in am 4. Hypertension, not on any medication, will continue to monitor 5. DVT prophylaxis - SCDs Inpatient E&M: 86624 Subs Hosp L2
--- NOTE | 2019-12-06 08:14 | PN.SURG_ITS ---
Patient Problems: Active and Suspected Problems (Last Reviewed 12/05/19 @ 02:[address] Julián Verdin MD) Colitis (Acute) GI bleed (Acute) Diabetes (Acute) Subjective: The patient reports that she passed some gas this morning and with that there was some bloody output. She is not having any abdominal pain this morning. No nausea or vomiting. - Physical Exam Vitals/I&O's: Vital Signs Temp Pulse Resp BP Pulse Ox 98.2 F 64 16 128/74 H 95 12/06/19 03:08 12/06/19 03:08 12/06/19 03:08 12/06/19 03:08 12/06/19 03:08 Oxygen Delivery Method Room Air Weight: 195 lb 15.855 oz Body Mass Index (BMI) 34.7 Intake and Output for Last 24 Hours 12/04/19 12/05/19 12/06/19 23:59 23:59 23:59 Intake Total 1100 / 1100 2815.58 / 2815.58 678.33 / 678.33 Output Total 950 / 950 250 / 250 Balance 1100 / 1100 1865.58 / 1865.58 428.33 / 428.33 General: Alert, Cooperative Lungs: Normal air movement Abdomen: Soft, Non-Distended Microbiology Past 72 Hours 12/05/19 10:10 Stool Enteric Bacteriology - Final 12/05/19 10:10 Stool C. difficile DNA Amplification - Final 12/04/19 17:41 Stool Stool Occult Blood (SABRINA) - Final Occult Blood Positive Laboratory Results 12/05/19 09:44: Hgb 12.6, Hct 40.0 12/05/19 11:59: POC Glucose 212 H 12/05/19 16:03: Hgb 12.4, Hct 39.5 12/05/19 18:03: POC Glucose 151 H 12/05/19 23:57: POC Glucose 183 H 12/06/19 05:08: WBC 12.6 H, RBC 4.15 L, Hgb 12.0, Hct 38.4, MCV 92.5, MCH 28.9, MCHC 31.3 L, RDW Std Deviation 42.2, RDW Coeff of Agus 12.5, Plt Count 236, MPV 11.2, Immature Gran % (Auto) 0.400, Neut % (Auto) 73.2 H, Lymph % (Auto) 19.9, [place] % (Auto) 4.5, Eos % (Auto) 1.8, Baso % (Auto) 0.2, Absolute Neuts (auto) 9.2 H, Absolute Lymphs (auto) 2.50, Nucleated RBC % 0 12/06/19 05:08: Sodium 139, Potassium 3.3 L, Chloride 108 H, Carbon Dioxide 27.0, Anion Gap 4 L, BUN 8, Creatinine 0.59, Estim Creat Clear Calc 38.35, Est GFR (MDRD) Af Amer 126, Est GFR (MDRD) Non-Af 104, BUN/Creatinine Ratio 13.5, Glucose 148 H, Calcium 7.9 L, Total Bilirubin 0.70, AST 10 L, ALT 12 L, Alkaline Phosphatase 68, Total Protein 5.9 L, Albumin 2.4 L, Globulin 3.5, Albumin/Globulin Ratio 0.7 L 12/06/19 06:19: POC Glucose 163 H Current Medications Dextrose (D50w Syringe) 0 gm IV X1 PRN; Protocol PRN Reason: Hypoglycemia Glucagon () 1 mg IM .X1 PRN PRN Reason: Hypoglycemia Sodium Chloride () 1,000 mls @ 100 mls/hr IV .Q10H [facility] Last Admin: 12/06/19 06:16 Dose: Not Given Documented by: Metronidazole (Flagyl) 500 mg in 100 mls @ 100 mls/hr IV Q8 [facility] Last Infusion: 12/06/19 06:13 Dose: Infused Documented by: Ciprofloxacin (Cipro) 400 mg in 200 mls @ 200 mls/hr IV Q12 [facility] Last Infusion: 12/05/19 23:25 Dose: Infused Documented by: Sodium Chloride () 250 mls @ 15 mls/hr IV .[id number] PRN PRN Reason: Saline Flush Last Infusion: 12/05/19 13:07 Dose: 0 mls/hr Documented by: Sodium Chloride () 250 mls @ 15 mls/hr IV .[id number] PRN PRN Reason: Additional IVPB Infusion Pantoprazole Sodium 80 mg/ (Sodium Chloride) 100 mls @ 10 mls/hr CONT INF Q10H [facility] Last Admin: 12/05/19 22:26 Dose: 10 mls/hr Documented by: Potassium Chloride () 10 meq in 100 mls @ 100 mls/hr IV BOLUS Q1H FABI Stop: 12/06/19 11:44 Insulin Human Lispro (Humalog Kwikpen (Bkc)) 0 unit SC Q6 FABI; Protocol Last Admin: 12/06/19 06:20 Dose: 1 u Documented by: Ondansetron HCl (Zofran) 4 mg IV Q8H PRN PRN PRN Reason: NAUSEA/VOMITING Sodium Chloride () 10 - 40 ml IV UD PRN PRN Reason: SALINE FLUSH Last Admin: 12/05/19 13:05 Dose: 10 ml Documented by: Medical Necessity - Tobacco Use Smoking Status: Never smoker Assessment/Plan All Active Problems (Last Reviewed 12/05/19 @ 02:[address] Julián Verdin MD) Colitis (Acute) GI bleed (Acute) Diabetes (Acute) 79-year-old female with colitis 1. Patient's pain is improved and her white count has improved. The patient still reports that she is having some blood per rectum. I recommend continuing n.p.o. until the blood stops. She may be able to advance to clears later today or early tomorrow. Continue IV antibiotics. Rajat Ramirez MD Pager: [facility] [address] [place] [address], [address] [place] [address] Office:
[2019-12-06] MEDS: Potassium Chloride 10mEq/100mL 10 MEQ/100 ML IV.SOLN. 100 MEQ IV BOLUS ×4 (08:44→12:16)
[2019-12-06 08:51] VITALS: BP 146/64; PULSE 63; RESP 18; TEMP 36.7; O2SAT 95
[2019-12-06] MEDS: 0.9% Normal Saline 1,000 ML 100 ML IV ×2 (09:57→22:15)
[2019-12-06] MEDS: Ciprofloxacin 400 MG/200 ML BAG 200 MG IV ×2 (09:59→23:29)
[2019-12-06 12:41] LABS: Bedside Glucose 171 mg/dL (70-110)
[2019-12-06 14:27] VITALS: BP 151/75; PULSE 74; RESP 18; TEMP 36.6; O2SAT 95
[2019-12-06 18:20] LABS: Bedside Glucose 154 mg/dL (70-110)
[2019-12-06 22:00] VITALS: BP 165/85; PULSE 60; RESP 18; TEMP 37.1; O2SAT 96
[2019-12-06 23:21] VITALS: BP 180/85; PULSE 58
[2019-12-06 23:36] LABS: Bedside Glucose 132 mg/dL (70-110)
[2019-12-07] VITALS (7 sets, daily range): BP systolic 144–180; BP diastolic 66–93; PULSE 58–84; RESP 16–18; TEMP 36.6–37; O2SAT 94–96
[2019-12-07] MEDS: hydrALAZINE 20 MG/ML Vial 10 MG IV (00:18)
[2019-12-07] MEDS: metroNIDAZOLE 500 MG/100 ML BAG 100 MG IV ×3 (05:02→21:12)
[2019-12-07] MEDS: Insulin Lispro 100 UNIT/ML INSULN.PEN SC ×4 (05:13→22:22)
[2019-12-07 05:26] LABS: Bedside Glucose 160 mg/dL (70-110)
[2019-12-07 05:33] LABS: Basophil# 0.03 X10^3/uL; Basophil% 0.3 % (0-1); Eosinophil# 0.17 X10^3/uL; Eosinophils% 1.6 % (0-5); Hematocrit 38.5 % (37-47); Hemoglobin 12.4 g/dL (12.0-15.0); Lymphocyte % 17.1 % (19-41); Mean Corp Hgb Conc 32.2 g/dL (32-36); Mean Corpuscular Hgb 28.9 pg (27.0-32.0); Mean Corpuscular Volume 89.7 fL (81-99); Mean Platelet Vol. 10.8 fl (6.2-12.0); Monocyte% 4.8 % (0-10); NRBC Flagged by Analyzer 0 % (0-5); Neutrophil # 7.97 X10^3/uL (2.7-7.7); Neutrophil % 75.9 % (47-70); Platelet Count 269 K/mm3 (150-450); RBC Distribution Width CV 12.3 % (11.6-14.6); RBC Distribution Width SD 40.3 fl (35.1-43.9); Red Blood Count 4.29 M/mm3 (4.2-5.4); White Blood Count 10.5 K/mm3 (4.4-11.0)
[2019-12-07 05:52] LABS: ALB/GLOB Ratio 0.7 RATIO (0.9-2.4); AST(SGOT) 19 U/L (15-37); Alanine Aminotransfer ALT/SGPT 14 U/L (13-56); Albumin, Serum 2.6 g/dL (3.2-5.0); Alkaline Phosphatase 74 U/L (45-117); Anion Gap 6 (5-15); BUN 5 mg/dL (7-18); BUN/Creat Ratio 10.4 RATIO (10-20); Calcium,Total 8.2 mg/dL (8.5-10.1); Chloride 107 mmol/L (98-107); Creatinine, Serum 0.48 mg/dL (0.55-1.02); EST Glomerular Filtration Rate 132 mL/min (>60); Est Glom Filt Rate - Afr Amer 160 mL/min (>60); Estimated Creatinine Clearance 38.35 ml/min; Globulin 3.8 g/dL (2.2-4.2); Glucose 141 mg/dL (74-106); Potassium 3.3 mmol/L (3.5-5.1); Protein, Total 6.4 g/dL (6.4-8.2); Sodium Level 139 mmol/L (136-145)
--- NOTE | 2019-12-07 07:06 | PCM.PN.SRG ---
Patient Problems: Active and Suspected Problems (Last Reviewed 12/05/19 @ 02:[address] Julián Verdin MD) Colitis (Acute) GI bleed (Acute) Diabetes (Acute) Subjective: Patient reports that she did not have much per rectum overnight. She is having improved abdominal pain with no nausea or vomiting. - Physical Exam Vitals/I&O's: Vital Signs Temp Pulse Resp BP Pulse Ox 98.6 F 79 16 160/78 H 96 12/07/19 06:30 12/07/19 06:30 12/07/19 06:30 12/07/19 06:30 12/07/19 06:30 Oxygen Delivery Method Room Air Weight: 195 lb 15.855 oz Body Mass Index (BMI) 34.7 Intake and Output for Last 24 Hours 12/05/19 12/06/19 12/07/19 23:59 23:59 23:59 Intake Total 2815.58 / 2815.58 3036.92 / 3036.92 855 / 855 Output Total 950 / 950 1650 / 2100 1950 / 1950 Balance 1865.58 / 1865.58 1386.92 / 936.92 -1095 / -1095 General: Alert, Oriented x3 Lungs: Normal air movement Abdomen: Soft, Non Tender, Non-Distended Microbiology Past 72 Hours 12/05/19 10:10 Stool Enteric Bacteriology - Final 12/05/19 10:10 Stool C. difficile DNA Amplification - Final 12/04/19 17:41 Stool Stool Occult Blood (SABRINA) - Final Occult Blood Positive Laboratory Results 12/06/19 12:32: POC Glucose 171 H 12/06/19 18:12: POC Glucose 154 H 12/06/19 23:28: POC Glucose 132 H 12/07/19 05:02: WBC 10.5, RBC 4.29, Hgb 12.4, Hct 38.5, MCV 89.7, MCH 28.9, MCHC 32.2, RDW Std Deviation 40.3, RDW Coeff of Agus 12.3, Plt Count 269, MPV 10.8, Immature Gran % (Auto) 0.300, Neut % (Auto) 75.9 H, Lymph % (Auto) 17.1 L, [place] % (Auto) 4.8, Eos % (Auto) 1.6, Baso % (Auto) 0.3, Absolute Neuts (auto) 8.0 H, Absolute Lymphs (auto) 1.80, Nucleated RBC % 0 12/07/19 05:02: Sodium 139, Potassium 3.3 L, Chloride 107, Carbon Dioxide 26.0, Anion Gap 6, BUN 5 L, Creatinine 0.48 L, Estim Creat Clear Calc 38.35, Est GFR (MDRD) Af Amer 160, Est GFR (MDRD) Non-Af 132, BUN/Creatinine Ratio 10.4, Glucose 141 H, Calcium 8.2 L, Total Bilirubin 0.80, AST 19, ALT 14, Alkaline Phosphatase 74, Total Protein 6.4, Albumin 2.6 L, Globulin 3.8, Albumin/Globulin Ratio 0.7 L 12/07/19 05:11: POC Glucose 160 H Current Medications Dextrose (D50w Syringe) 0 gm IV X1 PRN; Protocol PRN Reason: Hypoglycemia Glucagon () 1 mg IM .X1 PRN PRN Reason: Hypoglycemia Metronidazole (Flagyl) 500 mg in 100 mls @ 100 mls/hr IV Q8 [facility]I Last Infusion: 12/07/19 06:02 Dose: Infused Documented by: Ciprofloxacin (Cipro) 400 mg in 200 mls @ 200 mls/hr IV Q12 [facility]I Last Infusion: 12/07/19 00:29 Dose: Infused Documented by: Sodium Chloride () 250 mls @ 15 mls/hr IV .[id number] PRN PRN Reason: Saline Flush Last Infusion: 12/05/19 13:07 Dose: 0 mls/hr Documented by: Sodium Chloride () 250 mls @ 15 mls/hr IV .[id number] PRN PRN Reason: Additional IVPB Infusion Last Infusion: 12/06/19 14:48 Dose: Infused Documented by: Insulin Human Lispro (Humalog Kwikpen (Bkc)) 0 unit SC Q6 FABI; Protocol Last Admin: 12/07/19 05:13 Dose: 1 u Documented by: Ondansetron HCl (Zofran) 4 mg IV Q8H PRN PRN PRN Reason: NAUSEA/VOMITING Sodium Chloride () 10 - 40 ml IV UD PRN PRN Reason: SALINE FLUSH Last Admin: 12/05/19 13:05 Dose: 10 ml Documented by: Medical Necessity - Tobacco Use Smoking Status: Never smoker Assessment/Plan All Active Problems (Last Reviewed 12/05/19 @ 02:[address] Julián Verdin MD) Colitis (Acute) GI bleed (Acute) Diabetes (Acute) 79-year-old female with acute colitis with bleeding 1. The patient's white count has normalized and her pain is improving. I will start a clear liquid diet today. Likely advance diet and discharge tomorrow if doing well. I stopped her IV fluids and convert her PPI to oral. Continue IV antibiotics for today. Anticipate DC tomorrow if tolerating clear liquids today and able to advance tomorrow. Rajat Ramirez MD Pager: [facility] [address] [place] [address], [address] [place] [address] Office:
--- NOTE | 2019-12-07 07:15 | PN_ITS ---
Patient Problems: Active and Suspected Problems (Last Reviewed 12/05/19 @ 02:[address] Julián Verdin MD) Colitis (Acute) GI bleed (Acute) Diabetes (Acute) Reason for Visit: Follow-up on acute GI bleed/acute colitis Subjective: Patient was seen and examined. She had one episode of bloody stools this m orning, left lower quadrant tenderness is much improved. Denies dizziness or palpitations or chest pain. Objective: Physical exam: General: Alert, Oriented x3, Cooperative HEENT: Atraumatic, PERRLA, EOMI, Normocephalic Neck: Supple, No JVD, Negative Carotid Bruits Lungs: Clear to auscultation, Normal air movement, No rhonchi, No wheeze Cardiovascular: Regular rate, Regular Rhythm, Normal S1, Normal S2, No murmurs Abdomen: Bowel Sounds Present, Soft, tenderness over left lower quadrant, no guarding or RBT Extremities: No edema, Capillary Refill Less than 3 Seconds Skin: No rashes, No breakdown Musculoskeletal: No Tenderness to Palpation of Joints or Extremities Neurological: Cranial nerves II-XII grossly intact Psych/Mental Status: Normal Affect, Appropriate Vitals/I&O's: Vital Signs Temp Pulse Resp BP Pulse Ox 98.6 F 79 16 160/78 H 96 12/07/19 06:30 12/07/19 06:30 12/07/19 06:30 12/07/19 06:30 12/07/19 06:30 Oxygen Delivery Method Room Air Weight: 88.9 kg Body Mass Index (BMI) 34.7 Intake and Output for Last 24 Hours 12/05/19 12/06/19 12/07/19 23:59 23:59 23:59 Intake Total 2815.58 / 2815.58 3036.92 / 3036.92 855 / 855 Output Total 950 / 950 1650 / 2100 1950 / 1950 Balance 1865.58 / 1865.58 1386.92 / 936.92 -1095 / -1095 Microbiology Past 72 Hours 12/05/19 10:10 Stool Enteric Bacteriology - Final 12/05/19 10:10 Stool C. difficile DNA Amplification - Final 12/04/19 17:41 Stool Stool Occult Blood (SABRINA) - Final Occult Blood Positive Laboratory Results 12/06/19 12:32: POC Glucose 171 H 12/06/19 18:12: POC Glucose 154 H 12/06/19 23:28: POC Glucose 132 H 12/07/19 05:02: WBC 10.5, RBC 4.29, Hgb 12.4, Hct 38.5, MCV 89.7, MCH 28.9, MCHC 32.2, RDW Std Deviation 40.3, RDW Coeff of Agus 12.3, Plt Count 269, MPV 10.8, Immature Gran % (Auto) 0.300, Neut % (Auto) 75.9 H, Lymph % (Auto) 17.1 L, [place] % (Auto) 4.8, Eos % (Auto) 1.6, Baso % (Auto) 0.3, Absolute Neuts (auto) 8.0 H, Absolute Lymphs (auto) 1.80, Nucleated RBC % 0 12/07/19 05:02: Sodium 139, Potassium 3.3 L, Chloride 107, Carbon Dioxide 26.0, Anion Gap 6, BUN 5 L, Creatinine 0.48 L, Estim Creat Clear Calc 38.35, Est GFR (MDRD) Af Amer 160, Est GFR (MDRD) Non-Af 132, BUN/Creatinine Ratio 10.4, Glucose 141 H, Calcium 8.2 L, Total Bilirubin 0.80, AST 19, ALT 14, Alkaline Phosphatase 74, Total Protein 6.4, Albumin 2.6 L, Globulin 3.8, Albumin/Globulin Ratio 0.7 L 12/07/19 05:11: POC Glucose 160 H Current Medications Dextrose (D50w Syringe) 0 gm IV X1 PRN; Protocol PRN Reason: Hypoglycemia Glucagon () 1 mg IM .X1 PRN PRN Reason: Hypoglycemia Metronidazole (Flagyl) 500 mg in 100 mls @ 100 mls/hr IV Q8 FABI Last Infusion: 12/07/19 06:02 Dose: Infused Documented by: Ciprofloxacin (Cipro) 400 mg in 200 mls @ 200 mls/hr IV Q12 FABI Last Infusion: 12/07/19 00:29 Dose: Infused Documented by: Sodium Chloride () 250 mls @ 15 mls/hr IV .[id number] PRN PRN Reason: Saline Flush Last Infusion: 12/05/19 13:07 Dose: 0 mls/hr Documented by: Sodium Chloride () 250 mls @ 15 mls/hr IV .[id number] PRN PRN Reason: Additional IVPB Infusion Last Infusion: 12/06/19 14:48 Dose: Infused Documented by: Potassium Chloride () 10 meq in 100 mls @ 100 mls/hr IV BOLUS Q1H FABI Stop: 12/07/19 11:14 Insulin Human Lispro (Humalog Kwikpen (Bkc)) 0 unit SC Q6 FABI; Protocol Last Admin: 12/07/19 05:13 Dose: 1 u Documented by: Ondansetron HCl (Zofran) 4 mg IV Q8H PRN PRN PRN Reason: NAUSEA/VOMITING Pantoprazole Sodium (Protonix) 20 mg PO DAILY [facility] Sodium Chloride () 10 - 40 ml IV UD PRN PRN Reason: SALINE FLUSH Last Admin: 12/05/19 13:05 Dose: 10 ml Documented by: STROKE Vital Signs/Narrative: Vital Signs Temp Pulse Resp BP Pulse Ox 12/07/19 06:30 98.6 F 79 16 160/78 H 96 Medical Necessity - Tobacco Use Smoking Status: Never smoker Assessment/Plan All Active Problems (Last Reviewed 12/05/19 @ 02:[address] Julián Verdin MD) Colitis (Acute) GI bleed (Acute) Diabetes (Acute) 1. Acute GI bleed likely secondary to acute colitis, stable, sppears to be improving slightly CT scan of the abdomen shows colitis of the descending and sigmoid colon No drop in hemoglobin. Stable vitals General surgery consulted, being managed conservatively We will continue with H&H, IV PPI, IV antibiotics( day 4) 2. Acute colitis, as above in #1 Continue on IV antibiotics Stool for C. difficile, enteric panel negative, stool for ova and parasites pending 3. Hypokalemia, K 3.3, replaced, recheck in am 4. Hypertension, uncontrolled, not on any medication, Will add amlodipine 5mg daily, hydralazine prn Will continue to monitor 5. DVT prophylaxis - SCDs Inpatient E&M: 06120 Subs Hosp L2
[2019-12-07] MEDS: Ciprofloxacin 400 MG/200 ML BAG 200 MG IV ×2 (10:16→22:20)
[2019-12-07] MEDS: amLODIPine 5 MG Tablet PO (10:19)
[2019-12-07] MEDS: Pantoprazole Sodium 20 MG Tablet PO (10:19)
--- NOTE | 2019-12-07 10:30 | CASEMGMT ---
OSCAR KILLIAN Face to Face with patient for initial transition planning/care coordination assessment. RN CM introduced self and role at [facility]. Patient lying in bed, alert and oriented. Patient willing to participate in assessment and is able to answer all questions appropriately. Care providers, pharmacy, and demographics verified. Patient wishes to discharge home, denies need for home health at this time. Patient states he has no further needs or concerns at this time. CM to follow for discharge planning needs that may arise. PCP: , patient states she is switching PCP. List of PCPs provided to patient. Specialists: none Preferred Pharmacy: [facility] Insurance: [facility] Prescription Benefit:yes Living Will/HPOA: none LNOK: Living Arrangements: Patient lives with in a 2 story home with bed and bath on main level. Patient states she has 6 steps with railing to enter the home. Patient states she was independent at home. Transportation: self, DME/HHC: Patient states she has cane, shower chair, and grab bars at home. Patient will need glucometer at discharge. Disposition Plan: Patient to discharge home with family support and follow-up plans in place. Ruthie TODD, RN, CM
[2019-12-07] MEDS: Potassium Chloride 10mEq/100mL 10 MEQ/100 ML IV.SOLN. 100 MEQ IV BOLUS ×4 (11:03→15:29)
[2019-12-07 11:41] LABS: Bedside Glucose 182 mg/dL (70-110)
[2019-12-07 17:25] LABS: Bedside Glucose 171 mg/dL (70-110)
[2019-12-07 22:36] LABS: Bedside Glucose 173 mg/dL (70-110)
[2019-12-08 02:13] VITALS: BP 158/72; PULSE 80; RESP 16; TEMP 36.9; O2SAT 94
[2019-12-08] MEDS: metroNIDAZOLE 500 MG/100 ML BAG 100 MG IV (06:44)
[2019-12-08 06:50] LABS: Bedside Glucose 149 mg/dL (70-110)
[2019-12-08 07:21] VITALS: O2SAT 91
--- NOTE | 2019-12-08 09:29 | PN.SURG_ITS ---
Patient Problems: Active and Suspected Problems (Last Reviewed 12/05/19 @ 02:[address] Julián Verdin MD) Colitis (Acute) GI bleed (Acute) Diabetes (Acute) Subjective: Patient reports no further pain. She is not having any nausea vomiting or fevers or chills. - Physical Exam Vitals/I&O's: Vital Signs Temp Pulse Resp BP Pulse Ox 98.4 F 80 16 158/72 H 91 12/08/19 02:13 12/08/19 02:13 12/08/19 02:13 12/08/19 02:13 12/08/19 07:21 Oxygen Delivery Method Room Air Weight: 195 lb 15.855 oz Body Mass Index (BMI) 34.7 Intake and Output for Last 24 Hours 12/06/19 12/07/19 12/08/19 23:59 23:59 23:59 Intake Total 3036.92 / 3036.92 3156.33 / 3156.33 311 / 311 Output Total 1650 / 2100 4250 / 4250 600 / 600 Balance 1386.92 / 936.92 -1093.67 / -1093.67 -289 / -289 General: Alert, Oriented x3 Neck: No JVD Abdomen: Soft, Non Tender, Non-Distended Microbiology Past 72 Hours 12/05/19 10:10 Stool Enteric Bacteriology - Final 12/05/19 10:10 Stool C. difficile DNA Amplification - Final Laboratory Results 12/07/19 11:33: POC Glucose 182 H 12/07/19 17:15: POC Glucose 171 H 12/07/19 22:19: POC Glucose 173 H 12/08/19 06:46: POC Glucose 149 H Current Medications Amlodipine Besylate (Norvasc) 5 mg PO DAILY FABI Last Admin: 12/07/19 10:19 Dose: 5 mg Documented by: Ciprofloxacin HCl (Cipro) 500 mg PO BID FABI Dextrose (D50w Syringe) 0 gm IV X1 PRN; Protocol PRN Reason: Hypoglycemia Glucagon () 1 mg IM .X1 PRN PRN Reason: Hypoglycemia Hydralazine HCl (Apresoline Iv) 5 mg IV Q6H PRN PRN PRN Reason: BLOOD PRESSURE Sodium Chloride () 250 mls @ 15 mls/hr IV .[id number] PRN PRN Reason: Saline Flush Last Infusion: 12/08/19 08:22 Dose: Infused Documented by: Sodium Chloride () 250 mls @ 15 mls/hr IV .[id number] PRN PRN Reason: Additional IVPB Infusion Last Infusion: 12/06/19 14:48 Dose: Infused Documented by: Insulin Human Lispro (Humalog Kwikpen (Bkc)) 0 unit SC ACHS FABI; Protocol Last Admin: 12/08/19 06:47 Dose: Not Given Documented by: Metronidazole (Flagyl) 500 mg PO TID FABI Ondansetron HCl (Zofran) 4 mg IV Q8H PRN PRN PRN Reason: NAUSEA/VOMITING Pantoprazole Sodium (Protonix) 20 mg PO DAILY FABI Last Admin: 12/07/19 10:19 Dose: 20 mg Documented by: Sodium Chloride () 10 - 40 ml IV UD PRN PRN Reason: SALINE FLUSH Last Admin: 12/05/19 13:05 Dose: 10 ml Documented by: Medical Necessity - Tobacco Use Smoking Status: Never smoker Assessment/Plan All Active Problems (Last Reviewed 12/05/19 @ 02:[address] Julián Verdin MD) Colitis (Acute) GI bleed (Acute) Diabetes (Acute) 79-year-old female with colitis 1. Patient reports improvement in her pain. She is not having any bloody diarrhea today. I recommend that she advance to a full liquid diet if she tolerates that she can be discharged home on oral Cipro and Flagyl for 10 days and follow-up with me in 1 week. I would like her discharged home on a full liquid diet. I will advance her diet if she follows up and is doing well. Rajat Ramirez MD Pager: [facility] [address] [place] [address], [address] [place] [address] Office:
[2019-12-08 09:42] VITALS: BP 151/72; PULSE 83; RESP 18; TEMP 36.9; O2SAT 94
[2019-12-08] MEDS: Ciprofloxacin 500 MG Tablet PO (09:47)
[2019-12-08] MEDS: Pantoprazole Sodium 20 MG Tablet PO (09:47)
[2019-12-08] MEDS: amLODIPine 5 MG Tablet PO (09:47)
--- NOTE | 2019-12-08 10:17 | CASEMGMT ---
OSCAR KILLIAN NOTE: Per Dr Kessler, plan is for discharge today. Pt newly diagnosed w/Diabetes. Script obtained for glucometer from Dr Kessler. OSCAR KILLIAN to room to talk with pt. Pt given script and made aware she can take it to pharmacy of her choice. Pt advised to talk with pharmacist for teaching/instruction on glucometer use. Pt voices understanding. Discussed w/pt importance of monitoring her blood sugars and to monitor for signs/symptoms of hyper/hypoglycemia. Pt states she is not sure what these are. Pt states someone told her there would be someone to come in and talk to her about this. RN CONSTANTIN spoke w/RNTia, and made aware diabetic teaching reinforcement is needed. OSCAR KILLIAN also spoke w/barge loader and she was made aware of same and states she will talk with pt. Pt denies other discharge needs/concerns at this time. Advised to ask for OSCAR KILLIAN if any further concerns/needs arise. Pt voices understanding. Loretta TODD RN, CM
--- NOTE | 2019-12-08 11:20 | DCINST_ITS ---
- Discharge Diagnoses Current Active Problems: Current Active and Chronic Problems (Last Reviewed 12/05/19 @ 02:[address] Julián Verdin MD) Colitis (Acute) GI bleed (Acute) Diabetes (Acute) You will use the following diet at home:: Calorie/Carbohydrate Controlled (specify 1200, 1400, etc) - 1800 Your food should be the consistency of: Mechanical soft (ground) Discharge Activity: Return to Normal Activity Allergies/Adverse Reactions: Allergies No Known Allergies Allergy (Verified 12/04/19 16:44) Medications to take at Discharge Amlodipine [Norvasc] 5 mg PO DAILY #90 tab 12/08/19 Ciprofloxacin [Cipro] 500 mg PO BID #20 tab 12/08/19 Metformin HCl 500 mg PO BID #120 tab 12/08/19 Pantoprazole Sodium [Protonix] 20 mg PO DAILY #30 tab 12/08/19 metroNIDAZOLE [Flagyl] 500 mg PO TID #30 tab 12/08/19 The following prescriptions were given: Ciprofloxacin [Cipro] 500 mg PO BID #20 tab Transmission Status: Received by [id number] metroNIDAZOLE [Flagyl] 500 mg PO TID #30 tab Transmission Status: Received by [id number] Metformin HCl 500 mg PO BID #120 tab Transmission Status: Pending to [id number] Amlodipine [Norvasc] 5 mg PO DAILY #90 tab Transmission Status: Received by [id number] Pantoprazole Sodium [Protonix] 20 mg PO DAILY #30 tab Transmission Status: Received by [id number] Primary Care Physician: Kati Guo MD [Primary Care Provider] - Please follow up with your Primary Care Physician in: 5 to 7 days Test Results: Test results from this visit will be discussed in further detail at your follow- up appointment, if applicable. Please Follow Up With: Rajat Ramirez MD When: call for apt Proposed Discharge Date: 12/08/19
--- NOTE | 2019-12-08 11:30 | PCM.DC.SUM ---
Discharge Date and Diagnosis - Problem List Patient Problems: Active and Suspected Problems (Last Reviewed 12/05/19 @ 02:[address] Julián Verdin MD) Colitis (Acute) GI bleed (Acute) Diabetes (Acute) Date of Admission: 12/04/19 Date of Discharge: 12/08/19 - Primary Discharge Diagnosis Acute Problems: Active Problems (Last Reviewed 12/05/19 @ 02:[address] Julián Verdin MD) Colitis (Acute) GI bleed (Acute) Diabetes (Acute) Hospital Course and Treatment Imaging Results: Clinical Impression(s) from Imaging Studies Abdomen/Pelvis CT 12/04/19 16:56 IMPRESSION: 1. CT findings suggest sequela of acute infectious or inflammatory colitis involving the descending and sigmoid colon. 2. Cholelithiasis. Electronically Signed: Kat Jacobo MD at 19:53 EDT , Service support , Summary of Care Provided: The patient is a 79 year old F who presented with hematemesis and hematochezia CAT scan demonstrated acute colitis 1. Acute colitis ?Infectious versus ischemic colitis. Patient was managed with antibiotic therapy with consultation placed to surgery. Patient did improve with therapy discharged home on Cipro and Flagyl for 10 days and instructed to follow-up with general surgery as outpatient 2. Hypertension -Patient was started on amlodipine 5 mg daily prescription written on discharge . Hypokalemia ?Corrected per protocol 4. Diabetes mellitus type 2 -patient was found to have elevated blood glucose hemoglobin A1c obtained in the ED was 11. Prescription for Metformin written on discharge Patient Problems: Active and Suspected Problems (Last Reviewed 12/05/19 @ 02:[address] Julián Verdin MD) Colitis (Acute) GI bleed (Acute) Diabetes (Acute) - Physical Exam Vitals/I&O's: Vital Signs Temp Pulse Resp BP Pulse Ox 98.4 F 83 18 151/72 H 94 12/08/19 09:42 12/08/19 09:42 12/08/19 09:42 12/08/19 09:42 12/08/19 09:42 Oxygen Delivery Method Room Air Weight: 88.9 kg Body Mass Index (BMI) 34.7 Intake and Output for Last 24 Hours 0912/07/19 12/08/19 23:59 23:59 23:59 Intake Total 3036.92 / 3036.92 3156.33 / 3156.33 311 / 311 Output Total 1650 / 2100 4250 / 4250 600 / 600 Balance 1386.92 / 936.92 -1093.67 / -1093.67 -289 / -289 General: Alert HEENT: Atraumatic Oral: Moist Mucosa Lungs: Diminished Cardiovascular: Regular rate, Regular Rhythm Neurological: Neuro grossly intact Psych/Mental Status: Normal Affect Microbiology Past 72 Hours 12/05/19 10:10 Stool Enteric Bacteriology - Final 12/05/19 10:10 Stool C. difficile DNA Amplification - Final Laboratory Results 12/07/19 11:33: POC Glucose 182 H 12/07/19 17:15: POC Glucose 171 H 12/07/19 22:19: POC Glucose 173 H 12/08/19 06:46: POC Glucose 149 H Current Medications Amlodipine Besylate (Norvasc) 5 mg PO DAILY COUNTS INCLUDE 234 BEDS AT THE [facility] Last Admin: 12/08/19 09:47 Dose: 5 mg Documented by: Ciprofloxacin HCl (Cipro) 500 mg PO BID COUNTS INCLUDE 234 BEDS AT THE [facility] Last Admin: 12/08/19 09:47 Dose: 500 mg Documented by: Dextrose (D50w Syringe) 0 gm IV X1 PRN; Protocol PRN Reason: Hypoglycemia Glucagon () 1 mg IM .X1 PRN PRN Reason: Hypoglycemia Hydralazine HCl (Apresoline Iv) 5 mg IV Q6H PRN PRN PRN Reason: BLOOD PRESSURE Sodium Chloride () 250 mls @ 15 mls/hr IV .[id number] PRN PRN Reason: Saline Flush Last Infusion: 12/08/19 08:22 Dose: Infused Documented by: Sodium Chloride () 250 mls @ 15 mls/hr IV .[id number] PRN PRN Reason: Additional IVPB Infusion Last Infusion: 12/06/19 14:48 Dose: Infused Documented by: Insulin Human Lispro (Humalog Kwikpen (Bkc)) 0 unit SC ACHS COUNTS INCLUDE 234 BEDS AT THE [facility]; Protocol Last Admin: 12/08/19 06:47 Dose: Not Given Documented by: Metronidazole (Flagyl) 500 mg PO TID COUNTS INCLUDE 234 BEDS AT THE [facility] Ondansetron HCl (Zofran) 4 mg IV Q8H PRN PRN PRN Reason: NAUSEA/VOMITING Pantoprazole Sodium (Protonix) 20 mg PO DAILY FABI Last Admin: 12/08/19 09:47 Dose: 20 mg Documented by: Sodium Chloride () 10 - 40 ml IV UD PRN PRN Reason: SALINE FLUSH Last Admin: 12/05/19 13:05 Dose: 10 ml Documented by: Discharge Diet: Soft diet, 1800 Calorie Control Diet Discharge Activity: Return to Normal Activity Home Medications: Medications to take at Discharge Amlodipine [Norvasc] 5 mg PO DAILY #90 tab 12/08/19 Ciprofloxacin [Cipro] 500 mg PO BID #20 tab 12/08/19 Metformin HCl 500 mg PO BID #120 tab 12/08/19 Pantoprazole Sodium [Protonix] 20 mg PO DAILY #30 tab 12/08/19 metroNIDAZOLE [Flagyl] 500 mg PO TID #30 tab 12/08/19 Following Prescriptions Were Given to Patient: Ciprofloxacin [Cipro] 500 mg PO BID #20 tab Transmission Status: [facility] by [id number] metroNIDAZOLE [Flagyl] 500 mg PO TID #30 tab Transmission Status: Received by [id number] Metformin HCl 500 mg PO BID #120 tab Transmission Status: Pending to [id number] Amlodipine [Norvasc] 5 mg PO DAILY #90 tab Transmission Status: Received by [id number] Pantoprazole Sodium [Protonix] 20 mg PO DAILY #30 tab Transmission Status: Received by [id number] Primary Care Physician: Kati Guo MD [Primary Care Provider] - Please follow up with your Primary Care Physician in: 5 to 7 days Please Follow Up With: Rajat Ramirez MD When: call for apt Disposition: Home Minutes spent on discharge:: 35 Patient Condition:: Stable Medical Necessity - Tobacco Use Smoking Status: Never smoker Meaningful Use Info Meaningful Use Diagnoses (Choose all that apply): None applicable Inpatient E&M: 13693 Disch Hosp
[2019-12-08] MEDS: Insulin Lispro 100 UNIT/ML INSULN.PEN SC (11:47)
[2019-12-08 12:00] LABS: Bedside Glucose 175 mg/dL (70-110)
--- NOTE | 2019-12-08 14:50 | PHA.DC.MC ---
Pharmacy Service has performed discharge medication reconciliation and counseling for this patient. 1. METFORMIN 500MG PO BID 2. CIPROFLOXACIN 500MG PO BID x 10 days 3. METRONIDAZOLE 500MG PO TID x 10 days 4. AMLODIPINE 5MG PO DAILY 5. PANTOPRAZOLE 20MG PO DAILY The patient's discharge medication list was reviewed for discrepancies and discrepancies were resolved. Home Medications Amlodipine [Norvasc] 5 mg PO DAILY #90 tab 12/08/19 Ciprofloxacin [Cipro] 500 mg PO BID #20 tab 12/08/19 Metformin HCl 500 mg PO BID #120 tab 12/08/19 Pantoprazole Sodium [Protonix] 20 mg PO DAILY #30 tab 12/08/19 metroNIDAZOLE [Flagyl] 500 mg PO TID #30 tab 12/08/19 The patient was counseled on the following discharge medications and changes in medications for homegoing were reviewed. The Reason for Use, instructions for use, and potential side effects were reviewed for all new medications. The patient's questions regarding all of their medications were answered. The patient was able to verbally demonstrate an understanding of their discharge medications. Patient counseled by pharmacy data analyst, Danielle.
[2019-12-08] MEDS: metroNIDAZOLE 500 MG Tablet PO (14:58)
[2019-12-08 14:59] VITALS: BP 159/62; PULSE 81; RESP 18; TEMP 36.6; O2SAT 94
== END 2019-12-08 15:20 | disposition home or self-care (01) | DRG 392 ==
LOC: ED 20:16 → MS3 20:26
PROVIDERS: Internal Medicine; Admitting Provider Hospitalist; Emergency Provider Emergency Medicine; PCP Internal Medicine; Visit Provider Internal Medicine
DX: K52.9 Noninfective gastroenteritis and colitis, unspecified (principal); I10 Essential (primary) hypertension; E11.65 Type 2 diabetes mellitus with hyperglycemia; E87.6 Hypokalemia; K80.20 Calculus of gallbladder without cholecystitis without obstruction; Z87.19 Personal history of other diseases of the digestive system; Z79.84 Long term (current) use of oral hypoglycemic drugs; Z79.899 Other long term (current) drug therapy
CPT/HCPCS: 36415; 74177; 80048; 80053; 82274; 82962; 83036; 85014; 85018; 85025; 85610; 85730; 87177; 87209; 87493; 87506; 97802; 97803; 99285; J7030; J7050; Q9967; A4216; J0744; J2405